=== PATIENT | male | born 1950 | race Caucasian/White ===

== ENCOUNTER → 2017-05-26 | Outpatient (CLI) | payer BC ==
[~2017-05-26] MED LIST: AMLO-96 PO; AMOX-556 PO; APIX5TAB PO; ASPI-1403 PO; ASPI-1471 PO; CEPH-13 PO; DILT120C18 PO; FEN145 PO; FENO160T11 PO; FLUT16SP19 NS; FLUT9.9S; METO50TA19 PO; MULT1TAB64 PO; PRED-1 PO; [UNRECOGNIZED DRUG - REMARK] PO
--- NOTE | 2017-05-27 09:56 | RADIOLOGY IMAGING REPORT ---
FACILITY: [facility] - [place] PATIENT NAME: EDDIE SCHWARTZ : [id number] MR: [id number] V: [id number] EXAM DATE: ORDERING PHYSICIAN: SHAUNA NASH TECHNOLOGIST: Lele Bolivar EXAMINATION:TWO-DIMENSIONAL ECHOCARDIOGRAPH REASON:CAD/MURMUR 2D Measurements (normal values in centimeters) LV endLV endRV endVent.LV PostAorticLeftPercent DiastolicSystolicDiastolicSeptumWallRootAtriumShortening (3.5-5.7)(0.9-2.6)(0.6-1.1)(0.6-1.1)(2.0-3.7)(1.9-4.0)(25-35%) [id number]% STROKE VOLUME: 39ml ESTIMATED EJECTION FRACTION:72% PARASTERNAL LONG AXIS: Overall left ventricular systolic function appears to be normal. Occasional premature ventricular contraction is noted. Right ventricle is borderline enlarged. The other chamber sizes are all normal. Aortic valve & mitral valve both appear to open normally. Color examination of the valves reveals a trace amount of mitral insufficiency. Color examination of the aortic valve was unremarkable. Right ventricle appears to contract normally & the TAPSE is measured within normal ranges at 3.7. PARASTERNAL SHORT AXIS: Overall left ventricular systolic function again appears to be normal & chamber sizes are normal. The aortic valve was trileaflet in configuration & appears to open normally. Mild to possibly moderate amount of pulmonic insufficiency is noted. There does appear to be 2 separate jets of pulmonic insufficiency present. The pulmonic valve itself is not well seen. APICAL FOUR AND TWO CHAMBER: Normal left ventricular ejection fraction. Normal chamber sizes. No wall motion abnormalities are noted. There does appear to be a possible pacemaker present in the right sided heart chambers. Aortic valve area & mitral valve area both measure within normal ranges at 3.0 & 3.1cm2 respectively. Left atrial & right atrial volumes are measured within normal ranges ata19 & 15ml/m2. The tricuspid regurgitation Vmax measured 2.84m/sec with an estimated right atrial pressure of 3mm Hg. SUBCOSTAL VIEW: No pericardial effusion was noted. No atrioseptal or ventriculoseptal defects were noted. Strain measurements do show some generalized hypokinesis but no akinesis. The ascending aorta is slightly enlarged at 3.8cm. Doppler examination of the mitral valve in diastole does reveal the A wave > E wave. IVC is normal in size. Strain measurements also show significant decrease in Strain along the inferior lateral wall, basilar portion. OVERALL IMPRESSION: 1. Normal left ventricular ejection fraction of 72% with a Grade 1/4 decrease in diastolic function. 2. Borderline right ventricular enlargement with all the other chamber sizes being normal. 3. Borderline left ventricular thickening more along the interventricular septum but no evidence for any outflow tract obstruction. 4. A trileaflet aortic valve with no abnormalities. 5. A mild to borderline moderate amount of pulmonic insufficiency with 2 jets of pulmonic insufficiency, one centrally directed & one medially. 6. A mild amount of tricuspid insufficiency with estimated right ventricular systolic pressures at the upper range of normal at 35mm Hg. 7. A trace of mitral insufficiency present. 8. The ascending aorta is slightly increased in diameter at 3.8cm. 9. There appears to be a possible pacemaker present in the right sided heart chambers. Dictated by: Fiona Hedrick M.D. on 05/26/2017 at 17:39 Transcribed by: [email or web address] on 05/27/2017 at 7:53 Approved by: Fiona Hedrick M.D. on 05/27/2017 at 9:54 [facility]
== END ==
LOC: US 02:38
PROVIDERS: ATTEND Internal Medicine Cardiovascular Disease
DX: I50.30 Unspecified diastolic (congestive) heart failure (principal); I51.7 Cardiomegaly; I37.1 Nonrheumatic pulmonary valve insufficiency; I07.1 Rheumatic tricuspid insufficiency; I34.0 Nonrheumatic mitral (valve) insufficiency; Z95.0 Presence of cardiac pacemaker
CPT/HCPCS: 93306

== ENCOUNTER → 2017-06-30 | Outpatient (CLI) | payer BC ==
[~2017-06-30] MED LIST changes: +IOPAMIDOL 76% 75 ML INFUS BTL 75 ML ONE; +NS 0.9% 150 ML BAG 150 ML ONE
--- NOTE | 2017-06-30 09:10 | RADIOLOGY IMAGING REPORT ---
FAC[place] [facility] [place]IENT NAME: Jefferson Johnson : 1950 MR: [id number] V: [id number] EXAM DATE: ORDERING PHYSICIAN: SHAUNA NASH TECHNOLOGIST: [place] [facility] [place] : 1950 Visit/Account:[id number] Date of Sevice: 06/30/2017 CTA CHEST WW/O CNTR (PULM ANG) HISTORY: Aortic aneurysm ADDITIONAL HISTORY: None. TECHNIQUE: CTA chest with intravenous contrast. Axial imaging acquired following administration of IV contrast timed for maximum opacification of aortic vasculature. Slab 3-D MIP reconstructed images were also created for further evaluation and interpretation. Reconstruction of the source data set i ncludes multiplanar 2-D in the sagittal and coronal planes and 3-D reconstructed coronal slab MIP ser ies. 3-D images were created by the technologist. Dose Lowering Technique One of the following dose optimization techniques was utilized in the performance of this exam: Autom ated exposure control; adjustment of the mA and/or kV according to the patient's size; or use of an i terative reconstruction technique. Specific details can be referenced in the facility's radiology C T exam operational policy. CONTRAST: 75 mL Isovue-370 COMPARISON: Two-view chest September 07, 2015 FINDINGS: Lungs/pleura: 3 mm calcified granuloma in the left lower lobe Heart/vessels: The ascending thoracic aorta measures approximately 3.7 cm in AP dimension.. The de scending thoracic aorta measures 2.7 cm in AP dimension at the level of the mariano and 2.7 cm in diam eter distally. There are mild atherosclerotic calcification seen at the thoracic aortic arch and reyna cending thoracic aorta and branch vessels. Moderate coronary artery calcifications are present.. Th ere is a dual lead cardiac pacemaker. No evidence of a pericardial effusion. Mediastinum/lymph nodes: Negative. Visualized upper abdomen: There is a small hiatal hernia and mild thickening of the distal esophagus . Fluid is also noted within the esophagus suggesting gastroesophageal reflux disease Bones/soft tissues: Mild spondylotic changes of the thoracic spine. Additional findings: None IMPRESSION: The a sending thoracic aorta measures 3.7 cm in AP dimension, descending thoracic aorta measures 2.7 cm in AP dimension. There are mild atherosclerotic calcifications throughout the thoracic aortic arc h and descending thoracic aorta and branch vessels Moderate coronary artery calcifications Small hiatal hernia with mild thickening the distal esophagus. Fluid within the esophagus is suggest uche of gastroesophageal reflux disease Report Dictated By: Razia Ponce MD at 06/30/2017 8:48 AM Report E-Signed By: Razia Ponce MD at 06/30/2017 9:06 AM WSN:[email or web address]
== END ==
LOC: CT 00:53
PROVIDERS: ATTEND Internal Medicine Cardiovascular Disease
DX: I25.10 Atherosclerotic heart disease of native coronary artery without angina pectoris (principal); K44.9 Diaphragmatic hernia without obstruction or gangrene; I71.2 Thoracic aortic aneurysm, without rupture
CPT/HCPCS: 71275; Q9967

== ENCOUNTER → 2018-02-16 | Outpatient (CLI) | payer BC ==
[~2018-02-16] MED LIST changes: +AMLO-111 PO; -AMLO-96 PO; +ATOR40TA24 PO; +DILT120C12 PO; -DILT120C18 PO; +HYDR-2966 PO; +IOPAMIDOL 76% 100 ML INFUS BTL 100 ML ONE; -IOPAMIDOL 76% 75 ML INFUS BTL 75 ML ONE; +LOSA100T75 PO; +LOSA50TA80 PO; +MULT-865 PO; -NS 0.9% 150 ML BAG 150 ML ONE; +NS(*) 0.9% 50 ML BAG 50 ML ONE; +OMEG-96 PO; +PNEU0.5D3 IM; +PRED20TA6 PO
--- NOTE | 2018-02-16 14:14 | RADIOLOGY IMAGING REPORT ---
FACILITY: [facility] PATIENT NAME: Jefferson Johnson : 1950 MR: [id number] V: [id number] EXAM DATE: ORDERING PHYSICIAN: SHAUNA NASH TECHNOLOGIST: Location: [facility] Patient: Jefferson Johnson : 1950 Visit/Account:[id number] Date of Sevice: 02/16/2018 CTA CHEST WW/O CNTR (PULM ANG) HISTORY: Follow-up for thoracic aortic aneurysm ADDITIONAL HISTORY: None. TECHNIQUE: CTA chest with intravenous contrast. Axial imaging acquired following administration of IV contrast timed for maximum opacification of the pulmonary arterial vasculature. Slab 3-D MIP laura nstructed images were also created for further evaluation and interpretation. Reconstruction of the [facility] data set includes multiplanar 2-D in the sagittal and coronal planes and 3-D reconstructed willi nal slab MIP series. 3-D images were created by the technologist.Dose Lowering Technique One of the following dose optimization techniques was utilized in the performance of this exam: Autom ated exposure control; adjustment of the mA and/or kV according to the patient's size; or use of an i terative reconstruction technique. Specific details can be referenced in the facility's radiology C T exam operational policy. CONTRAST: 100 mL Isovue-370 COMPARISON: June 30, 2017 FINDINGS: Lungs/pleura: The inferior most aspect of the lower lobes are not included on the study Heart/vessels: The ascending thoracic aorta measures 3.9 cm in AP dimension, previously 3.7 cm. The descending thoracic aorta measured at the level the mariano measures 2.8 cm in AP dimension as oppose d to 2.7 cm previously. There are mild vascular calcifications throughout the thoracic aortic arch a nd descending thoracic aorta and branch vessels. Moderate coronary artery calcifications are present . Dual lead cardiac pacemaker is again seen Mediastinum/lymph nodes: Negative. Visualized upper abdomen: There is a small hiatal hernia and mild thickening of the distal esophagus . Bones/soft tissues: There mild spondylotic changes of the thoracic spine Additional findings: None IMPRESSION: The ascending thoracic aorta measures 3.9 cm in AP dimension, previously measuring 3.7 cm Small hiatal hernia with thickening of the distal esophagus which may indicate gastroesophageal reflu x disease however clinical correlation suggested The descending thoracic aorta at the level the mariano measures 2.8 cm in AP dimension, previously 2.7 cm. Report Dictated By: Razia Ponce MD at 02/16/2018 1:55 PM Report E-Signed By: Razia Ponce MD at 02/16/2018 2:10 PM WSN:[email or web address]
== END ==
LOC: CT 00:34
PROVIDERS: ATTEND Internal Medicine Cardiovascular Disease
DX: I71.2 Thoracic aortic aneurysm, without rupture (principal); K44.9 Diaphragmatic hernia without obstruction or gangrene
CPT/HCPCS: 71275; J7050; Q9967

== ENCOUNTER 2018-09-25 11:28 | Emergency (ER) | payer OTHER, BC ==
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
[~2018-09-25 11:28] MED LIST changes: -DOCU-416 PO; +EMS NS 0.9%(*) 1000 ML BAG 1,000 ML IV ONE; -GABA-547 PO; -OXYC5TAB38 PO
[2018-09-25] MEDS ORDERED: NS(*) 0.9% 1000 ML BAG 1,000 ML IV ONE (11:41)
[2018-09-25] MEDS ORDERED: DIPHTH/TETANUS/ACEL. PERTUSSIS IM ONE (11:45)
[2018-09-25 11:52] LABS: PLATELET COUNT, AUTOMATED 236 K/uL (150-450)
[2018-09-25] MEDS ORDERED: IOPAMIDOL 76% 100 ML INFUS BTL 100 ML ONE (11:56)
[2018-09-25 11:59] LABS: INR 1.25
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
[2018-09-25] MEDS ORDERED: fentaNYL CITR 100 MCG/2 ML AMP IVP ONE (14:05)
[2018-09-25 14:45] VITALS: BP 146/83
[2018-10-01] MEDS ORDERED: OXYC5TAB38 PO (08:34)
[2018-10-01] MEDS ORDERED: DOCU-416 PO (08:34)
[2018-10-01] MEDS ORDERED: GABA-547 PO (08:34)
== END 2018-09-25 14:58 | disposition short-term general hospital (02) ==
LOC: ER 11:32
DX: S22.22XA Fracture of body of sternum, initial encounter for closed fracture (principal); S20.219A Contusion of unspecified front wall of thorax, initial encounter; Z79.01 Long term (current) use of anticoagulants; V29.9XXA Motorcycle rider (driver) (passenger) injured in unspecified traffic accident, initial encounter
CPT/HCPCS: 12001; 70450; 71260; 72125; 74177; 80320; 81001; 83605; 83690; 85025; 85610; 85730; 90471; 90715; 96361; 96374; 99285; J3010; J7030; Q9967; 82040; 82247; 82310; 82374; 82435; 82565; 82947; 84075; 84132; 84155; 84295; 84450; 84460; 84520

== ENCOUNTER → 2018-09-25 | Outpatient (CLI) | payer BC ==
[~2018-09-25] MED LIST changes: -AMLO-111 PO; +AMLO-125 PO; +DOCU-416 PO; +GABA-547 PO; -IOPAMIDOL 76% 100 ML INFUS BTL 100 ML ONE; -NS(*) 0.9% 50 ML BAG 50 ML ONE; +OXYC5TAB38 PO
== END ==
LOC: AMB 14:45
PROVIDERS: ATTEND Nurse Practitioner
DX: S22.20XA Unspecified fracture of sternum, initial encounter for closed fracture (principal); R51 Headache; V29.9XXA Motorcycle rider (driver) (passenger) injured in unspecified traffic accident, initial encounter
CPT/HCPCS: A0425; A0428

== ENCOUNTER → 2018-09-25 | Outpatient (CLI) | payer BC | LOC: AMB 10:31 | PROVIDERS: ATTEND Nurse Practitioner | DX: S01.119A Laceration without foreign body of unspecified eyelid and periocular area, initial encounter (principal); V28.4XXA Motorcycle driver injured in noncollision transport accident in traffic accident, initial encounter; Y92.413 State road as the place of occurrence of the external cause | CPT/HCPCS: A0425; A0427 ==

== ENCOUNTER → 2018-10-05 | Outpatient (CLI) | payer BC ==
[~2018-10-05] MED LIST changes: +DOCU-416 PO; -EMS NS 0.9%(*) 1000 ML BAG 1,000 ML IV ONE; +GABA-547 PO; +IOPAMIDOL 76% 100 ML INFUS BTL 100 ML ONE; +NS(*) 0.9% 50 ML BAG 50 ML ONE; +OXYC5TAB38 PO
--- NOTE | 2018-10-05 10:23 | RADIOLOGY IMAGING REPORT ---
FACILITY: [facility] [place] PATIENT NAME: Jefferson Johnson : 1950 MR: [id number] V: [id number] EXAM DATE: ORDERING PHYSICIAN: SHAUNA NASH TECHNOLOGIST: Location: [facility] [place] Patient: Jefferson Johnson : 1950 Visit/Account:[id number] Date of Sevice: 10/05/2018 EXAMINATION: CT angiogram of the thoracic aorta with IV contrast 10/05/2018 8:00 AM HISTORY: Thoracic aortic aneurysm without rupture TECHNIQUE: Thin section axial scans were obtained during maximal arterial opacification through the c hest without gating. Reconstruction of the source data set includes multiplanar 2D in the sagittal an d coronal planes, and 3D coronal thin slab MIP series. Hand Paster images have been stored on PACS . Contrast: 75 mL of IV Isovue 370. One of the following dose optimization techniques was utilized in the performance of this exam: Autom ated exposure control; adjustment of the mA and/or kV according to the patient's size; or use of an i terative reconstruction technique. Specific details can be referenced in the facility's radiology C T exam operational policy. COMPARISON STUDIES: Trauma CT chest 09/25/2018 FINDINGS: Angiographic findings: Thoracic aorta: Ascending thoracic aorta is ectatic but not aneurysmal, 3.6 x 3.6 cm. The upper de scending thoracic aorta lung the back of the arch is mildly dilated at 3.3 x 3.3 cm. Mild atheroscle rotic calcifications. No substantial mural thrombus. No acute dissection. Aortic valve appears to be tricuspid. Other vasculature: Coronary calcifications are present. Great vessels have patent origins from the arch. Visualized upper abdominal vasculature is unremarkable apart from right hepatic replacement f rom the SMA. Additional non-angiographic findings: Indwelling pacemaker lead tips in the right atrium and right ventricle. 4 mm pleural-based micronodu le in the right lower lobe shown on the recent comparison is partially obscured by atelectasis. Ther e is additional sub-3 mm micronodule in the posterolateral right lower lobe inferior to this (series 5 image 57). No pneumothorax or significant contusion related to the recent trauma. Partially displ aced sternal fracture again shown. Mild wedging from T1 through T5. No bony retropulsion. The mild superior endplate wedging at T1 and T2 is new comparing with 02/16/2018. Wedging of T3 and T4 appea rs stable. Mild superior endplate wedging at T5 also is new since last February. IMPRESSION: 1. Ascending thoracic aorta is ectatic but not aneurysmal. 2. 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 3. Known partially displaced sternal fracture. Upper thoracic wedge compression deformities as disc ussed above, some which appear new at least since 02/16/2018. Report Dictated By: Jefferson Pace MD at 10/05/2018 10:00 AM Report E-Signed By: Jefferson Pace MD at 10/05/2018 10:15 AM WSN:[id number]
== END ==
LOC: CT 00:24
PROVIDERS: ATTEND Internal Medicine Cardiovascular Disease
DX: I77.810 Thoracic aortic ectasia (principal); I71.2 Thoracic aortic aneurysm, without rupture
CPT/HCPCS: 71275; J7050; Q9967